=== PATIENT | male | born 1965 | race African-American/Black ===

== ENCOUNTER 2018-03-19 13:45 | Emergency (ER) | payer MEDICAID ==
[~2018-03-19] VITALS: Ht 180.3 cm; Wt 98.0 kg
[~2018-03-19 13:45] MED LIST: DILANTIN; TEGRETOL
[2018-03-19] MEDS ORDERED: LORAZEPAM 2MG/ML CPJ IV PRN (14:15)
[2018-03-19] MEDS ORDERED: PHENYTOIN SODIUM 1,000 MG in SODIUM CHLORIDE 0.9% 100 ML IV ONE (14:30)
[2018-03-19] MEDS ORDERED: LEVETIRACETAM 500MG PREMIX 100 ML IV ONE (14:30)
[2018-03-19 14:40] LABS: HEMATOCRIT. 45.2 % (42.0-52.0); HEMOGLOBIN. 15.5 g/dL (14.0-18.0); MEAN CORPUSCULAR HEMOGLOBIN 31.6 pg (28.0-32.0); MEAN CORPUSCULAR VOLUME 92.2 fL (80.0-94.0); MEAN PLATELET VOLUME 8.3 fl (7.4-10.4); PLATELET 180 x1000/uL (130-400); RED BLOOD CELL COUNT 4.91 mill/uL (4.7-6.1); RED CELL DISTRIBUTION WIDTH 14.1 % (11.6-14.6)
[2018-03-19 14:47] LABS: CHLORIDE 112 mEq/L (98-107)
[2018-03-19 14:51] LABS: ETHANOL BLOOD < 10 mg/dL
[2018-03-19 15:14] LABS: PLATELET ESTIMATE NORMAL
[2018-03-19] MEDS ORDERED: ACETAMINOPHEN 325MG TABLET PO ONE (15:15)
[2018-03-19 16:17] VITALS: BP 137/79
== END 2018-03-19 16:36 | disposition home or self-care (01) ==
LOC: ER 14:19
DX: R56.9 Unspecified convulsions (principal)
CPT/HCPCS: 36415; 80053; 80185; 85025; 96365; 96367; 99284; G0482; J1165; J1953; Z7610; J7050